=== PATIENT | female | born 1990 | race Two or more races ===

== ENCOUNTER 2019-04-21 00:07 | Emergency (ER) | payer SELFPAY ==
[~2019-04-21] VITALS: Ht 157.5 cm; Wt 72.1 kg
[2019-04-21 01:57] VITALS: BP 108/68
[2019-04-21] MEDS ORDERED: BACLOFEN 10 MG TAB PO ONE (05:00)
[2019-04-21] MEDS ORDERED: HYDROcodone-ACET 5/325MG TAB PO ONE (05:00)
== END 2019-04-21 05:55 | disposition home or self-care (01) ==
LOC: ER 00:15
DX: G24.3 Spasmodic torticollis (principal)
CPT/HCPCS: 73030; 73100; 81025

== ENCOUNTER 2019-04-25 19:47 | Emergency (ER) | payer OTHER ==
[~2019-04-25] VITALS: Ht 157.5 cm; Wt 72.6 kg
[2019-04-25 23:27] VITALS: BP 92/56
[2019-04-26] MEDS ORDERED: KETOROLAC TROMETH 60MG/2ML VIAL IM ONE (00:15)
== END 2019-04-26 01:16 | disposition home or self-care (01) ==
LOC: ER 19:47
DX: S46.912A Strain of unspecified muscle, fascia and tendon at shoulder and upper arm level, left arm, initial encounter (principal); X58.XXXA Exposure to other specified factors, initial encounter; Y93.89 Activity, other specified; Y92.89 Other specified places as the place of occurrence of the external cause; Y99.8 Other external cause status
CPT/HCPCS: 96372; 99283; J1885